=== PATIENT | female | born 1985 | race African-American/Black ===

== ENCOUNTER 2017-07-14 23:53 | Inpatient (IN) | payer SELFPAY ==
[2017-07-15 06:00] VITALS: BP 128/73; PULSE 68; RESP 18; TEMP 97.4; O2SAT 95
[2017-07-15] MEDS ORDERED: ACETAMINOPHEN 325 MG TAB PO PRN (06:45)
[2017-07-15] MEDS ORDERED: MAGNESIUM HYDROXIDE SUSP 30 ML CUP PO PRN (06:45)
[2017-07-15] MEDS ORDERED: ALUMINUM/MAGNESIUM/SIMETH 30 ML CUP PO PRN (06:45)
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
[2017-07-15] MEDS: hydrOXYzine HCL 50 MG TAB PO PRN (15:20)
[2017-07-15 18:12] VITALS: BP 114/77; PULSE 66; RESP 17; TEMP 98.3; O2SAT 99
[2017-07-15] MEDS ORDERED: OLANZapine 5 MG TAB PO SCH (21:00)
[2017-07-15] MEDS ORDERED: diphenhydrAMINE HCL 50 MG CAP PO PRN (21:00)
[2017-07-16 05:32] VITALS: BP 110/75; PULSE 71; RESP 16; TEMP 97.8; O2SAT 98
[2017-07-16] MEDS: hydrOXYzine HCL 50 MG TAB PO PRN (09:03)
--- NOTE | 2017-07-16 14:24 | HHI.PYPN ---
Subjective Remarks Patient seen in her room with nurse Ml, chart reviewed, patient complaint medications, patient discussed with nurse. Patient calm cooperative acknowledges continued auditory hallucinations was somewhat decrease in intensity and severity. Patient still showing some bizarre thinking related to how medications functioning the different cells and nerves in her brain. Will increase at bedtime Zyprexa to 10 mg Review of Systems Except as stated in HPI: all other systems reviewed are Neg Mental Status Examination Appearance: Appropriate Consciousness: Alert Orientation: x4 Motor Activity: Normal gait Speech: Unremarkable Language: Adequate Fund of Knowledge: Adequate Attention and Concentration: Adequate Memory: Unremarkable Mood: Other (Euthymic to mildly dysphoric) Affect: Other (Slight decreased range and intensity) Thought Process & Associations: Loose associations Thought Content: Bizarre thinking Hallucination Type: Auditory (Slight decreased intrusiveness and intensity), Visual Delusion Type: Paranoid Suicidal Ideation: Yes (Vague secondary to auditory hallucinations) Suicidal Plan: No Suicidal Intention: No Homicidal Ideation: No Homicidal Plan: No Homicidal Intention: No Insight: Poor Judgment: Poor Results Vitals/IOs Vital Signs Date Time Temp Pulse Resp B/P (MAP) Pulse Ox O2 Delivery O2 Flow Rate FiO2 07/16/17 05:32 97.8 71 16 110/75 (87) 98 Assessment & Plan Problem List: (1) Brief psychotic disorder ICD Codes: F23 - Brief psychotic disorder Assessment & Plan Estimated LOS: days patient continues psychotic the voices are slightly diminished she medication adjustment above Justification for Cont. Inpt. At this time patient would decompensate a place to the lower level of care Discharge Planning Return home with family Request HC Surrog/Guard Advoc?: No Dimitri Villalta MD July 16, 2017 14:24
[2017-07-16 16:59] VITALS: BP 118/77; PULSE 67; RESP 17; TEMP 97.2; O2SAT 100
[2017-07-16] MEDS ORDERED: OLANZapine 10 MG TAB PO SCH (21:00)
[2017-07-17 05:34] VITALS: BP 111/79; PULSE 62; RESP 16; TEMP 97.6; O2SAT 99
[2017-07-17] MEDS ORDERED: OLAN10TA PO (10:51)
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
== END 2017-07-17 14:30 | disposition home or self-care (01) | DRG 885 ==
LOC: H260 07-15 05:15
PROVIDERS: ADMIT Psychiatry & Neurology Psychiatry; ATTEND Psychiatry & Neurology Psychiatry
DX: F23 Brief psychotic disorder (principal); F12.90 Cannabis use, unspecified, uncomplicated